=== PATIENT | female | born 1995 ===

== ENCOUNTER 2017-12-16 01:53 | Outpatient (RCR) | payer OTHER ==
[~2017-12-16 01:53] MED LIST: POTA20TA85 PO
--- NOTE | 2017-12-20 15:34 | RADIOLOGY IMAGING REPORT ---
FACILITY: [facility] - [place] PATIENT NAME: Sita May : 1995 MR: [id number] V: [id number] EXAM DATE: ORDERING PHYSICIAN: ISAK GOLD TECHNOLOGIST: Location: [facility] Patient: Sita May : 1995 Visit/Account:[id number] Date of Sevice: 12/16/2017 Examination: GALLIUM WHOLE BODY Comparison: None. History: Inflammation and joint pain. Procedure: Following the uneventful administration of 5.4 mCi Ga-67, whole body anterior and posterio r planar imaging is acquired at 24 and 72 hours. FINDINGS: Physiologic tracer accumulation within the nasopharynx, lacrimal glands, breast, liver, bow el, and marrow space. No suspicious site of tracer activity is identified. IMPRESSION: Negative gallium. No evidence of inflammation. Report Dictated By: Nicolas Rolon MD at 12/20/2017 3:23 PM Report E-Signed By: Nicolas Rolon MD at 12/20/2017 3:29 PM WSN:[id number]
== END 2017-12-16 18:00 | disposition home or self-care (01) ==
LOC: NUC 01:53
PROVIDERS: ATTEND Internal Medicine
DX: M25.50 Pain in unspecified joint (principal)
CPT/HCPCS: 78802; A9556

== ENCOUNTER → 2018-01-28 | Outpatient (REF) | payer OTHER ==
[2018-01-28 17:47] LABS: PLATELET COUNT, AUTOMATED 303 K/uL (150-450)
== END ==
PROVIDERS: ATTEND Nurse Practitioner Family
DX: R00.2 Palpitations (principal)
CPT/HCPCS: 82040; 82247; 82310; 82374; 82435; 82565; 82947; 84075; 84132; 84155; 84295; 84450; 84460; 84484; 84520; 85025

== ENCOUNTER → 2018-03-07 | Outpatient (REF) | payer BC, OTHER | LOC: ZZSTITCHES 13:51 | PROVIDERS: ATTEND Physician Assistant Medical | DX: R51 Headache (principal); R42 Dizziness and giddiness | CPT/HCPCS: 86618 ==